=== PATIENT | female | born 2000 | race Caucasian/White ===

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

== ENCOUNTER 2022-11-05 17:08 | Inpatient (IN) | payer OTHER ==
[2022-11-05] MEDS ORDERED: Lidocaine 1% 50 ML MDV INJECT PRN (20:31)
[2022-11-05] MEDS ORDERED: Nalbuphine 10 MG/0.5 ML Syringe IVPUSH PRN (20:31)
[2022-11-05] MEDS ORDERED: Oxytocin/Lactated Ringers 10 UNIT/1,000 ML BAG IV SCH ×2 (20:45)
[2022-11-05] MEDS ORDERED: Lactated Ringers 1,000 ML IV SCH (20:45)
[2022-11-06] MEDS ORDERED: Acetaminophen 325 MG Tab PO PRN (05:55)
[2022-11-06] MEDS ORDERED: Witch Hazel Medicated Pads 40/Jar TOP PRN (05:55)
[2022-11-06] MEDS ORDERED: Docusate Sodium 100 MG Cap PO PRN (05:55)
[2022-11-06] MEDS ORDERED: Benzocaine/Menthol 20%-0.5% Spray 78 GM Cannister TOP PRN (05:55)
[2022-11-06] MEDS: Ibuprofen 600 MG Tab PO PRN ×4 (06:07→18:35)
[2022-11-06] MEDS: Prenatal Multivitamin with Calcium/Folic Acid/Iron Tab PO SCH (09:45)
[2022-11-07] MEDS: Prenatal Multivitamin with Calcium/Folic Acid/Iron Tab PO SCH (08:46)
[2022-11-07] MEDS: Ibuprofen 600 MG Tab PO PRN (08:46)
== END 2022-11-07 12:20 | disposition home or self-care (01) | DRG 807 ==
LOC: JD.OBCHECK 17:08 → JD.OB 17:08 → JD.OBCHECK 20:31 → JD.OB 20:32 → OBSVTOIN 11-06 03:50 → JD.OB 11-06 03:51
PROVIDERS: ADMIT Obstetrics & Gynecology; ATTEND Obstetrics & Gynecology
PROC: 10E0XZZ Delivery of Products of Conception, External Approach (ICD-10-PCS; principal; 2022-11-06)
PROC: 10907ZC Drainage of Amniotic Fluid, Therapeutic from Products of Conception, Via Natural or Artificial Opening (ICD-10-PCS; 2022-11-06)
DX: O99.354 Diseases of the nervous system complicating childbirth (principal); Z37.0 Single live birth; Z3A.37 37 weeks gestation of pregnancy; O69.81X0 Labor and delivery complicated by cord around neck, without compression, not applicable or unspecified; G43.809 Other migraine, not intractable, without status migrainosus
CPT/HCPCS: 36415; 59025; 59409; 85025; 86592; 86803; 86850; 86900; 86901; A9270-GY; J2590; J7120